=== PATIENT | female | born 1955 | race Caucasian/White ===

== ENCOUNTER → 2018-11-03 09:06 | Outpatient (CLI) | payer OTHER ==
[2015-11-26 06:33] VITALS: BMI 32.2
[~2018-11-03 09:06] MED LIST: ASPIRIN EC81 M1 PO; CELEXA20 MG PO; ZOCOR20 MG PO
== END | disposition home or self-care (01) ==
LOC: D.HCCARDIO 09:06
PROVIDERS: ATTEND Internal Medicine Cardiovascular Disease
DX: I20.9 Angina pectoris, unspecified (principal)

== ENCOUNTER → 2019-11-21 12:48 | Outpatient (CLI) | payer OTHER ==
[2015-11-26 06:33] VITALS: BMI 32.2
== END | disposition home or self-care (01) ==
LOC: D.HCCECHO 12:48
PROVIDERS: ATTEND Internal Medicine Cardiovascular Disease
DX: I34.0 Nonrheumatic mitral (valve) insufficiency (principal)